=== PATIENT | female | born 1955 | race African-American/Black ===

== ENCOUNTER 2021-08-30 12:20 | Emergency (ER) | payer MEDICARE ==
[~2021-08-30] VITALS: Ht 167.6 cm; Wt 62.0 kg
[2021-08-30] MEDS ORDERED: ONDANSETRON HCL 4MG/2ML INJ IV STA (15:21)
[2021-08-30 15:49] LABS: BASOPHILS % 0.3 % (0.0-2.0); HEMATOCRIT. 37.2 % (36.0-48.0); HEMOGLOBIN. 12.8 g/dL (12.0-16.0); LYMPHOCYTES % 27.5 % (20.0-50.0); MEAN PLATELET VOLUME 7.9 fl (7.4-10.4); MONOCYTES % 7.4 % (2.0-8.0); NEUTROPHILS % 63.8 % (40.0-76.0); PLATELET 344 x1000/uL (130-400); RED BLOOD CELL COUNT 4.43 mill/uL (4.2-5.4); RED CELL DISTRIBUTION WIDTH 14.6 % (11.6-14.6)
[2021-08-30 15:52] LABS: CHLORIDE 108 mEq/L (98-107)
[2021-08-30 15:59] LABS: PROTHROMBIN TIME 10.7 sec (9.6-11.0)
[2021-08-30] MEDS ORDERED: SODIUM CHLORIDE 0.9% 500 ML IV ONE (16:45)
[2021-08-30 17:42] LABS: CLARITY URINE CLEAR (CLEAR); COLOR URINE YELLOW (YELLOW); KETONES URINE NEGATIVE (NEGATIVE); LEUKOCYTE ESTERASE URINE TRACE (NEGATIVE); NITRITE URINE NEGATIVE (NEGATIVE); OCCULT BLOOD URINE NEGATIVE (NEGATIVE); PH URINE 6.5 (4.5-8.0); PROTEIN URINE NEGATIVE (NEGATIVE); SPECIFIC GRAVITY URINE 1.013 (1.005-1.030)
[2021-08-30 17:46] VITALS: BP 153/95
[2021-08-30] MEDS ORDERED: OMEP20CA14 MT (18:52)
== END 2021-08-30 19:44 | disposition home or self-care (01) ==
LOC: ER 12:20
DX: R10.9 Unspecified abdominal pain (principal); R91.1 Solitary pulmonary nodule; K76.89 Other specified diseases of liver; D25.9 Leiomyoma of uterus, unspecified; I10 Essential (primary) hypertension; F03.90 Unspecified dementia, unspecified severity, without behavioral disturbance, psychotic disturbance, mood disturbance, and anxiety
CPT/HCPCS: 36415; 71045; 74176; 80053; 81003; 83690; 84484; 85025; 85610; 93005; 96361; 96374; 99285; J2405; J7040